=== PATIENT | female | born 1945 | race Caucasian/White ===

== ENCOUNTER 2017-11-02 07:05 | Outpatient (CLI) | payer MEDICARE ==
[~2017-11-02] VITALS: Ht 162.6 cm; Wt 83.5 kg
[~2017-11-02 07:05] MED LIST: succinylcholine 20mg/ml inj IV ONE
[2017-11-02] MEDS ORDERED: albuterol 2.5 MG/3 ML nebule NEB PRN (07:35)
== END 2017-11-02 23:59 | disposition home or self-care (01) ==
LOC: RT 07:05
PROVIDERS: ATTEND Nurse Practitioner Family
DX: J44.9 Chronic obstructive pulmonary disease, unspecified (principal); R06.09 Other forms of dyspnea; Z87.891 Personal history of nicotine dependence
CPT/HCPCS: 94060; 94640; 94727; 94729; 94760; J0330

== ENCOUNTER 2019-08-03 11:54 | Day surgery (SDC) | payer MEDICARE ==
[2019-08-02 12:04] LABS: BASOPHILS # (AUTO) 0.1 X10'3 (0-0.2); EOSINOPHILS # (AUTO) 0.4 X10'3 (0-0.9); EOSINOPHILS % (AUTO) 6.9 % (0-6); HEMOGLOBIN 12.8 g/dl (12.0-16.0); LYMPHOCYTES # (AUTO) 1.6 X10'3 (1.1-4.8); LYMPHOCYTES % (AUTO) 24.3 % (21-51); MEAN CORPUSCULAR HEMOGLOBIN 27.7 PG (27.0-31.0); MEAN CORPUSCULAR HGB CONC 32.8 g/dL (33.0-36.5); MEAN CORPUSCULAR VOLUME 84.3 FL (78-98); MEAN PLATELET VOLUME 7.5 FL (7.4-10.4); MONOCYTES # (AUTO) 0.6 X10'3 (0-0.9); MONOCYTES % (AUTO) 9.4 % (2-12); NEUTROPHILS # (AUTO) 3.7 X10'3 (1.8-7.7); NEUTROPHILS % (AUTO) 58.4 % (42-75); PLATELET COUNT 328 X10'3 (140-440); RED BLOOD COUNT 4.63 X10'6 (4.20-5.60); RED CELL DISTRIBUTION WIDTH 15.7 % (11.5-14.5); WHITE BLOOD COUNT 6.4 X10'3 (4.5-11.0)
[2019-08-02 12:12] LABS: ALBUMIN 3.6 G/DL (3.4-5.0); ANION GAP 8 (8-16); BLOOD UREA NITROGEN 18 MG/DL (7-18); BUN/CREATININE RATIO 23.4 (6.6-38.0); CALCIUM 9.5 MG/DL (8.5-10.1); CHLORIDE 105 MMOL/L (99-107); CREATININE 0.77 MG/DL (0.40-0.90); GLUCOSE 99 MG/DL (70-104); POTASSIUM 4.2 MMOL/L (3.5-5.1); SODIUM 141 MMOL/L (135-145); TOTAL CARBON DIOXIDE 27.6 MMOL/L (24-32); eGFR 74 ML/MIN
[2019-08-02 13:28] LABS: PARTIAL THROMBOPLASTIN TIME 24 SECONDS (22-32)
[2019-08-03] VITALS (8 sets, daily range): BP systolic 103–135; BP diastolic 60–77
[~2019-08-03] VITALS: Ht 162.6 cm; Wt 87.7 kg
[2019-08-03] MEDS ORDERED: LORazepam 0.5 MG tablet PO PRN (12:20)
[2019-08-03] MEDS ORDERED: diphenhydrAMINE 25mg capsule PO PRN (12:20)
[2019-08-03] MEDS ORDERED: normal saline 1,000 ML IV SCH (12:20)
[2019-08-03] MEDS ORDERED: FLUO20CA22 PO (13:25)
[2019-08-03] MEDS ORDERED: ASPI-1265 PO (13:25)
[2019-08-03] MEDS ORDERED: LOVA20TA2 PO (13:25)
[2019-08-03] MEDS ORDERED: LEVO112T5 PO (13:25)
[2019-08-03] MEDS ORDERED: OMEP20CA11 PO (13:25)
[2019-08-03] MEDS ORDERED: ANAS1TAB PO (13:25)
[2019-08-03] MEDS ORDERED: OXYB10TA4 PO (13:25)
[2019-08-03] MEDS ORDERED: CALC-499 PO (13:25)
[2019-08-03] MEDS ORDERED: fentaNYL/PF 50MCG/1 ML 2ML syringe ONE (14:12)
[2019-08-03] MEDS ORDERED: iohexol 350MG/ML 100ml bottle IV ONE (14:13)
[2019-08-03] MEDS ORDERED: nitroGLYCERIN-Tridil 50MG/D5W 250 ML IV ONE (14:13)
[2019-08-03] MEDS ORDERED: iohexol 350 MG/ML 50ML vial IV ONE (14:13)
[2019-08-03] MEDS ORDERED: heparin 1,000unit/ml 10ml vial 10 ML ONE (14:13)
[2019-08-03] MEDS ORDERED: midazolam 2 mg/2 ml injection ONE (14:13)
[2019-08-03] MEDS ORDERED: LIDOcaine 1% (10mg/ml)w/preservative injection 20ml MDV ONE (14:13)
[2019-08-03] MEDS ORDERED: normal saline 1000ml 1,000 ML IV SCH (15:35)
== END 2019-08-03 20:00 | disposition home or self-care (01) ==
LOC: SSTAY O 11:54
PROVIDERS: ATTEND Internal Medicine Cardiovascular Disease
DX: R94.39 Abnormal result of other cardiovascular function study (principal); I25.10 Atherosclerotic heart disease of native coronary artery without angina pectoris; J45.909 Unspecified asthma, uncomplicated; K21.9 Gastro-esophageal reflux disease without esophagitis; M19.90 Unspecified osteoarthritis, unspecified site; E03.9 Hypothyroidism, unspecified; F32.9 Major depressive disorder, single episode, unspecified; Z85.3 Personal history of malignant neoplasm of breast; Z79.01 Long term (current) use of anticoagulants; Z87.891 Personal history of nicotine dependence; Z98.890 Other specified postprocedural states; Z92.21 Personal history of antineoplastic chemotherapy; Z79.899 Other long term (current) drug therapy
CPT/HCPCS: 36415; 80048; 85025; 85610; 85730; 93458; 99152; 99153; C1760; C1769; J1644; J2001; J2250; J3010; J7030; Q0163; Q9967; A6258; J3490

== ENCOUNTER 2022-02-23 05:54 | Day surgery (SDC) | payer MEDICARE, OTHER ==
[2022-02-22 12:20] LABS: BASOPHILS # (AUTO) 0.1 X10'3 (0-0.2); EOSINOPHILS # (AUTO) 0.3 X10'3 (0-0.9); EOSINOPHILS % (AUTO) 4.2 % (0-6); HEMATOCRIT 35.6 % (35.0-45.0); HEMOGLOBIN 11.5 g/dl (12.0-16.0); LYMPHOCYTES # (AUTO) 1.5 X10'3 (1.1-4.8); MEAN CORPUSCULAR HEMOGLOBIN 24.2 PG (27.0-31.0); MEAN CORPUSCULAR HGB CONC 32.3 g/dL (33.0-36.5); MEAN PLATELET VOLUME 7.8 FL (7.4-10.4); MONOCYTES # (AUTO) 0.6 X10'3 (0-0.9); MONOCYTES % (AUTO) 9.9 % (2-12); NEUTROPHILS # (AUTO) 3.6 X10'3 (1.8-7.7); NEUTROPHILS % (AUTO) 59.9 % (42-75); PLATELET COUNT 372 X10'3 (140-440); RED BLOOD COUNT 4.74 X10'6 (4.20-5.60); RED CELL DISTRIBUTION WIDTH 17.9 % (11.5-14.5); WHITE BLOOD COUNT 6.1 X10'3 (4.5-11.0)
[2022-02-22 12:30] LABS: APTT 27 SECONDS (22-32)
[2022-02-22 12:35] LABS: ALBUMIN 3.7 G/DL (3.4-5.0); ANION GAP 7 (8-16); BLOOD UREA NITROGEN 20 MG/DL (7-18); BUN/CREATININE RATIO 24.7 (6.6-38.0); CALCIUM 9.2 MG/DL (8.5-10.1); CHLORIDE 104 MMOL/L (99-107); CREATININE 0.81 MG/DL (0.40-0.90); GLUCOSE 79 MG/DL (70-104); POTASSIUM 4.6 MMOL/L (3.5-5.1); SODIUM 139 MMOL/L (135-145); TOTAL CARBON DIOXIDE 27.7 MMOL/L (24-32); eGFR 69 ML/MIN
[~2022-02-23] VITALS: Ht 162.6 cm; Wt 87.5 kg
[2022-02-23] VITALS (9 sets, daily range): BP systolic 140–178; BP diastolic 69–100
[~2022-02-23 05:54] MED LIST changes: +ANAS1TAB PO; +ASPI-1265 PO; +CALC-499 PO; +FLUO-167 PO; +LEVO112T5 PO; +LOVA20TA2 PO; +OMEP20CA15 PO; +OXYB10TA4 PO; -succinylcholine 20mg/ml inj IV ONE
[2022-02-23] MEDS ORDERED: diphenhydrAMINE 25mg capsule PO PRN (06:10)
[2022-02-23] MEDS ORDERED: normal saline 1,000 ML IV SCH (06:10)
[2022-02-23] MEDS ORDERED: acetylcysteine 200 MG/ml 4ml vial PO PRN (06:15)
[2022-02-23] MEDS ORDERED: LIDOcaine/PRILOcaine 5gm cream TP ONE (06:20)
[2022-02-23] MEDS ORDERED: CARV6.2555 PO (06:26)
[2022-02-23] MEDS ORDERED: ROSU20TA31 PO (06:26)
[2022-02-23] MEDS ORDERED: ALEN70TA37 PO (06:29)
[2022-02-23] MEDS ORDERED: [UNRECOGNIZED DRUG - OTHER] (06:32)
[2022-02-23] MEDS ORDERED: IBUP-2697 PO (06:32)
[2022-02-23] MEDS ORDERED: FLAX1CAP4 PO (06:32)
[2022-02-23] MEDS ORDERED: VITAMIN B (06:32)
--- NOTE | 2022-02-23 07:00 | NUR ---
Spoke with MD to confirm access for procedure. MD states left arm access is available, however, he would like to approach from right wrist. Educated patient on procedure and approach. Clarification made on order for Mucomyst. New order given, no administer per MD.
[2022-02-23] MEDS ORDERED: iohexol 350MG/ML 100ml bottle IV ONE ×2 (07:30→09:33)
[2022-02-23] MEDS ORDERED: midazolam 1 mg/ML 2ml injection ONE (07:30)
[2022-02-23] MEDS ORDERED: fentaNYL/PF 50MCG/1 ML 2ML syringe ONE (07:30)
[2022-02-23] MEDS ORDERED: verapamil 2.5 mg/ml inj IV ONE (07:30)
[2022-02-23] MEDS ORDERED: nitroGLYCERIN-Tridil 50MG/D5W 250 ML IV ONE (07:30)
[2022-02-23] MEDS ORDERED: heparin 1,000unit/ml 10ml vial 10 ML ONE (07:30)
[2022-02-23] MEDS ORDERED: LIDOcaine 1% 30ml preserv. free vial ONE (07:46)
--- NOTE | 2022-02-23 10:23 | NUR ---
Pt appears to be resting comfortably, eyes closed, resp even. VS stable as charted. Pt vasc band in place. no s/s of bleeding. Will continue to monitor.
[2022-02-23] MEDS ORDERED: normal saline 1,000 ML IV ONE (10:25)
== END 2022-02-23 14:00 | disposition home or self-care (01) ==
LOC: SSTAY O 05:54
PROVIDERS: ATTEND Internal Medicine Cardiovascular Disease
DX: R94.39 Abnormal result of other cardiovascular function study (principal); I25.10 Atherosclerotic heart disease of native coronary artery without angina pectoris; I47.1 Supraventricular tachycardia; I10 Essential (primary) hypertension; E78.5 Hyperlipidemia, unspecified; G47.33 Obstructive sleep apnea (adult) (pediatric); E03.9 Hypothyroidism, unspecified; K21.9 Gastro-esophageal reflux disease without esophagitis; F32.A Depression, unspecified; Z91.018 Allergy to other foods; Z79.01 Long term (current) use of anticoagulants; Z98.49 Cataract extraction status, unspecified eye; Z98.890 Other specified postprocedural states; Z90.721 Acquired absence of ovaries, unilateral; Z79.899 Other long term (current) drug therapy; Z82.49 Family history of ischemic heart disease and other diseases of the circulatory system
CPT/HCPCS: 36415; 80048; 85025; 85610; 85730; 93005; 93458; 99152; 99153; A6258; C1769; C1894; J1644; J2250; J3010; J3490; J7030; Q9967; A4620; A5120; A6402

== ENCOUNTER 2022-07-14 06:00 | Day surgery (SDC) | payer MEDICARE, OTHER ==
[2022-07-13 13:38] LABS: ALBUMIN 3.5 G/DL (3.4-5.0); ANION GAP 3 (8-16); BLOOD UREA NITROGEN 17 MG/DL (7-18); CALCIUM 8.9 MG/DL (8.5-10.1); CHLORIDE 105 MMOL/L (99-107); CREATININE 0.85 MG/DL (0.40-0.90); GLUCOSE 92 MG/DL (70-104); POTASSIUM 4.3 MMOL/L (3.5-5.1); SODIUM 137 MMOL/L (135-145); TOTAL CARBON DIOXIDE 28.6 MMOL/L (24-32); eGFR 65 ML/MIN
[2022-07-13 13:39] LABS: BASOPHILS # (AUTO) 0.1 X10'3 (0-0.2); BASOPHILS % (AUTO) 1.2 % (0-1); EOSINOPHILS # (AUTO) 0.3 X10'3 (0-0.9); EOSINOPHILS % (AUTO) 3.9 % (0-6); HEMATOCRIT 33.6 % (35.0-45.0); LYMPHOCYTES # (AUTO) 1.5 X10'3 (1.1-4.8); LYMPHOCYTES % (AUTO) 22.2 % (21-51); MEAN CORPUSCULAR HEMOGLOBIN 25.7 PG (27.0-31.0); MEAN CORPUSCULAR HGB CONC 32.8 g/dL (33.0-36.5); MEAN CORPUSCULAR VOLUME 78.2 FL (78-98); MEAN PLATELET VOLUME 7.9 FL (7.4-10.4); MONOCYTES # (AUTO) 0.7 X10'3 (0-0.9); MONOCYTES % (AUTO) 10.2 % (2-12); NEUTROPHILS # (AUTO) 4.2 X10'3 (1.8-7.7); NEUTROPHILS % (AUTO) 62.5 % (42-75); PLATELET COUNT 307 X10'3 (140-440); RED BLOOD COUNT 4.29 X10'6 (4.20-5.60); RED CELL DISTRIBUTION WIDTH 16.4 % (11.5-14.5); WHITE BLOOD COUNT 6.7 X10'3 (4.5-11.0)
[2022-07-13 13:46] LABS: APTT 26 SECONDS (22-32)
[2022-07-14] VITALS (13 sets, daily range): BP systolic 137–172; BP diastolic 52–69
[~2022-07-14] VITALS: Ht 162.6 cm; Wt 85.8 kg
[~2022-07-14 06:00] MED LIST changes: +ALEN70TA37 PO; -ASPI-1265 PO; +CARV6.2555 PO; +FLAX1CAP4 PO; +IBUP-2697 PO; -LOVA20TA2 PO; +ROSU20TA31 PO; +VITAMIN B; +[UNRECOGNIZED DRUG - OTHER]
[2022-07-14] MEDS ORDERED: normal saline 1000ml 1,000 ML IV SCH ×2 (06:17→10:33)
[2022-07-14] MEDS ORDERED: CARV6.253 PO (06:39)
[2022-07-14] MEDS ORDERED: LETR2.5T7 PO (06:39)
[2022-07-14] MEDS ORDERED: ASPI-611 PO (06:39)
[2022-07-14] MEDS ORDERED: ceFAZolin inj. 2,000 MG in dextrose 5%-water 100 ML IV ONE (07:21)
[2022-07-14] MEDS ORDERED: vancomycin 1,000mg inj ONE (07:25)
[2022-07-14] MEDS ORDERED: midazolam 1 mg/ML 2ml injection ONE ×2 (07:26→08:28)
[2022-07-14] MEDS ORDERED: LIDOCAINE 1%/EPI 1:100,000 inj. 10 ML multi-dose vial ONE ×2 (07:26→08:32)
[2022-07-14] MEDS ORDERED: ceFAZolin 1000mg inj ONE (07:27)
[2022-07-14] MEDS ORDERED: fentaNYL/PF 50MCG/1 ML 2ML syringe ONE (07:27)
[2022-07-14] MEDS ORDERED: hydrALAZINE 20mg/ml inj. IV ONE (09:37)
[2022-07-14] MEDS ORDERED: vancomycin/NS 1 GM in NS 250 ML IV ONE (10:33)
[2022-07-14] MEDS ORDERED: HYDROcodone/acetaminophen 10/325mg tab PO PRN (10:35)
[2022-07-14] MEDS ORDERED: HYDROcodone/acetaminophen 5mg/325mg tablet PO PRN (10:35)
[2022-07-14] MEDS ORDERED: ceFAZolin/D5W- 1GM premix 50 ML IV SCH (16:00)
[2022-07-14] MEDS ORDERED: carvedilol 6.25mg tablet PO SCH (20:00)
[2022-07-15] MEDS ORDERED: VITAMIN D3 PO SCH (08:00)
[2022-07-15] MEDS ORDERED: FLUoxetine 20mg capsule PO SCH (08:00)
[2022-07-15] MEDS ORDERED: oxybutynin 5mg tablet PO SCH (08:00)
[2022-07-15] MEDS ORDERED: CALCIUM CITRATE PO SCH (08:00)
[2022-07-15] MEDS ORDERED: atorvastatin 20mg tablet PO SCH (08:00)
[2022-07-15] MEDS ORDERED: pantoprazole 40mg Tablet.DR PO SCH (08:00)
[2022-07-15] MEDS ORDERED: levoTHYROXINE 112mcg tablet PO SCH (08:00)
[2022-07-15] MEDS ORDERED: aspirin 81mg, enteric-coated 1 TAB TABLET.DR PO SCH (08:00)
[2022-07-20] MEDS ORDERED: Alendronate Sodium 70MG PO SCH (11:20)
== END 2022-07-14 16:00 | disposition home or self-care (01) ==
LOC: SSTAY O 06:00
PROVIDERS: ATTEND Internal Medicine Cardiovascular Disease
DX: I49.5 Sick sinus syndrome (principal); I10 Essential (primary) hypertension; E78.5 Hyperlipidemia, unspecified; Z79.01 Long term (current) use of anticoagulants; Z79.899 Other long term (current) drug therapy; Z98.890 Other specified postprocedural states; E03.9 Hypothyroidism, unspecified; K21.9 Gastro-esophageal reflux disease without esophagitis; F32.9 Major depressive disorder, single episode, unspecified; Z90.721 Acquired absence of ovaries, unilateral; I25.10 Atherosclerotic heart disease of native coronary artery without angina pectoris; Z82.49 Family history of ischemic heart disease and other diseases of the circulatory system; Z88.8 Allergy status to other drugs, medicaments and biological substances; J44.9 Chronic obstructive pulmonary disease, unspecified; G47.30 Sleep apnea, unspecified
CPT/HCPCS: 33208; 36415; 71046; 80048; 85025; 85610; 85730; 93005; 99152; 99153; C1785; C1894; C1898; J0360; J0690; J2250; J3010; J3370; J3490; J7030; J7060; A4565; A4615; A6258; A6449

== ENCOUNTER 2024-02-24 12:49 | Outpatient (CLI) | payer MEDICARE, OTHER ==
[~2024-02-24 12:49] MED LIST changes: -ANAS1TAB PO; +ASPI-611 PO; +CARV6.253 PO; -CARV6.2555 PO; -IBUP-2697 PO; +LETR2.5T7 PO; -ROSU20TA31 PO; +ROSU20TA73 PO
[2024-02-24 13:30] LABS: BASOPHILS # (AUTO) 0.1 X10'3 (0-0.2); EOSINOPHILS # (AUTO) 0.4 X10'3 (0-0.9); EOSINOPHILS % (AUTO) 4.9 % (0-6); HEMATOCRIT 31.8 % (35.0-45.0); HEMOGLOBIN 10.2 g/dl (12.0-16.0); LYMPHOCYTES # (AUTO) 1.6 X10'3 (1.1-4.8); LYMPHOCYTES % (AUTO) 19.1 % (21-51); MEAN CORPUSCULAR HEMOGLOBIN 24.9 PG (27.0-31.0); MEAN CORPUSCULAR HGB CONC 32.2 g/dL (33.0-36.5); MEAN CORPUSCULAR VOLUME 77.5 FL (78-98); MEAN PLATELET VOLUME 7.7 FL (7.4-10.4); MONOCYTES # (AUTO) 0.8 X10'3 (0-0.9); MONOCYTES % (AUTO) 8.8 % (2-12); NEUTROPHILS # (AUTO) 5.6 X10'3 (1.8-7.7); NEUTROPHILS % (AUTO) 66.2 % (42-75); PLATELET COUNT 308 X10'3 (140-440); RED BLOOD COUNT 4.11 X10'6 (4.20-5.60); RED CELL DISTRIBUTION WIDTH 18.5 % (11.5-14.5); WHITE BLOOD COUNT 8.5 X10'3 (4.5-11.0)
[2024-02-24 13:35] LABS: ALBUMIN 3.5 G/DL (3.4-5.0); ANION GAP 7 (8-16); BLOOD UREA NITROGEN 23 MG/DL (7-18); CALCIUM 8.5 MG/DL (8.5-10.1); CHLORIDE 105 MMOL/L (99-107); CREATININE 0.96 MG/DL (0.40-0.90); POTASSIUM 4.3 MMOL/L (3.5-5.1); SODIUM 140 MMOL/L (135-145); TOTAL CARBON DIOXIDE 28.3 MMOL/L (24-32); eGFR 57 ML/MIN
[2024-02-24 13:37] LABS: GLUCOSE 79 MG/DL (70-104)
[2024-02-24 13:39] LABS: APTT 26 SECONDS (22-32); PROTHROMBIN TIME 10.9 SECONDS (9.0-12.0)
== END 2024-02-24 23:59 | disposition home or self-care (01) ==
LOC: LAB 12:49 → EDSTATUS 02-27 08:00
PROVIDERS: ATTEND Internal Medicine Cardiovascular Disease
DX: Z01.818 Encounter for other preprocedural examination (principal); R94.39 Abnormal result of other cardiovascular function study; I25.10 Atherosclerotic heart disease of native coronary artery without angina pectoris
CPT/HCPCS: 36415; 80048; 85025; 85610; 85730; J7030

== ENCOUNTER 2024-03-28 06:54 | Day surgery (SDC) | payer MEDICARE, OTHER ==
[2024-03-27 10:07] LABS: BASOPHILS # (AUTO) 0.1 X10'3 (0-0.2); BASOPHILS % (AUTO) 1.2 % (0-1); EOSINOPHILS # (AUTO) 0.6 X10'3 (0-0.9); EOSINOPHILS % (AUTO) 8.2 % (0-6); HEMATOCRIT 31.8 % (35.0-45.0); HEMOGLOBIN 10.2 g/dl (12.0-16.0); LYMPHOCYTES # (AUTO) 1.3 X10'3 (1.1-4.8); LYMPHOCYTES % (AUTO) 19.8 % (21-51); MEAN CORPUSCULAR HEMOGLOBIN 25.1 PG (27.0-31.0); MEAN CORPUSCULAR HGB CONC 32.3 g/dL (33.0-36.5); MEAN CORPUSCULAR VOLUME 77.9 FL (78-98); MEAN PLATELET VOLUME 7.3 FL (7.4-10.4); MONOCYTES # (AUTO) 0.6 X10'3 (0-0.9); MONOCYTES % (AUTO) 8.3 % (2-12); NEUTROPHILS # (AUTO) 4.3 X10'3 (1.8-7.7); NEUTROPHILS % (AUTO) 62.5 % (42-75); PLATELET COUNT 321 X10'3 (140-440); RED BLOOD COUNT 4.08 X10'6 (4.20-5.60); RED CELL DISTRIBUTION WIDTH 18.8 % (11.5-14.5); WHITE BLOOD COUNT 6.8 X10'3 (4.5-11.0)
[2024-03-27 10:16] LABS: APTT 26 SECONDS (22-32); PROTHROMBIN TIME 10.7 SECONDS (9.0-12.0)
[2024-03-27 10:31] LABS: ALBUMIN 3.4 G/DL (3.4-5.0); ANION GAP 7 (8-16); BLOOD UREA NITROGEN 18 MG/DL (7-18); BUN/CREATININE RATIO 19.4 (10.0-20.0); CALCIUM 8.9 MG/DL (8.5-10.1); CHLORIDE 108 MMOL/L (99-107); CREATININE 0.93 MG/DL (0.40-0.90); GLUCOSE 108 MG/DL (70-104); POTASSIUM 4.4 MMOL/L (3.5-5.1); SODIUM 140 MMOL/L (135-145); TOTAL CARBON DIOXIDE 24.8 MMOL/L (24-32); eGFR 59 ML/MIN
[2024-03-27 10:37] LABS: ANISOCYTOSIS 2+; ELLIPTOCYTES FEW; MICROCYTOSIS 1+; PLATELET ESTIMATE NORMAL
[2024-03-28] VITALS (10 sets, daily range): BP systolic 112–140; BP diastolic 58–77; PULSE 60–72; RESP 14–19; TEMP 97.6; O2SAT 92–98
[~2024-03-28] VITALS: Ht 160 cm; Wt 88.5 kg
[2024-03-28] MEDS ORDERED: diphenhydrAMINE 25mg capsule PO PRN (07:10)
[2024-03-28] MEDS ORDERED: LORazepam 0.5 MG tablet PO PRN (07:10)
[2024-03-28] MEDS ORDERED: LEVO125T8 PO (07:25)
[2024-03-28] MEDS: normal saline 1,000 ML IV SCH (08:04)
[2024-03-28] MEDS ORDERED: fentaNYL/PF 50MCG/1 ML 2ML syringe ONE (08:29)
[2024-03-28] MEDS ORDERED: heparin 1,000unit/ml 10ml vial 10 ML ONE (08:29)
[2024-03-28] MEDS ORDERED: midazolam 1 mg/ML 2ml injection ONE (08:29)
[2024-03-28] MEDS ORDERED: verapamil 2.5 mg/ml inj IV ONE (08:29)
[2024-03-28] MEDS ORDERED: iohexol 350MG/ML 100ml bottle IV ONE ×2 (08:29→09:27)
[2024-03-28] MEDS ORDERED: LIDOcaine 1% (10mg/ml) 2ml vial ONE (08:29)
[2024-03-28] MEDS ORDERED: iohexol 350 MG/ML 50ML vial IV ONE ×2 (08:30→09:26)
[2024-03-28] MEDS ORDERED: nitroGLYCERIN 500mcg/5mL D5W 5 ML IV ONE (08:31)
[2024-03-28] MEDS ORDERED: diphenhydrAMINE 50 mg/ml inj ONE (09:01)
[2024-03-28] MEDS ORDERED: LIDOcaine 1% 30ml preserv. free vial ONE (09:09)
[2024-03-28] MEDS ORDERED: normal saline 1000ml 1,000 ML IV ONE (10:10)
[2024-03-28 11:35] LABS: ISTAT HGB ART 10.5 g/dl (12.0-16.0); ISTAT Hct ART 31 %PCV (35-45); ISTAT O2 SATURATION ARTERIAL 97 % (95-98); ISTAT SOURCE ART
[2024-03-28 14:37] LABS: ISTAT HGB MIX 10.5 g/dl (12.0-16.0); ISTAT Hct MIX 31 %PCV (35-45); ISTAT O2 SATURATION MIX VENOUS 69 % (60-80); ISTAT SOURCE VEN
== END 2024-03-28 14:10 | disposition home or self-care (01) ==
LOC: SSTAY O 06:54
PROVIDERS: ATTEND Internal Medicine Cardiovascular Disease
DX: R94.39 Abnormal result of other cardiovascular function study (principal); I25.10 Atherosclerotic heart disease of native coronary artery without angina pectoris; I10 Essential (primary) hypertension; E03.9 Hypothyroidism, unspecified; E78.5 Hyperlipidemia, unspecified; K21.9 Gastro-esophageal reflux disease without esophagitis; J44.9 Chronic obstructive pulmonary disease, unspecified; G47.33 Obstructive sleep apnea (adult) (pediatric); F32.A Depression, unspecified; Z90.721 Acquired absence of ovaries, unilateral; Z98.49 Cataract extraction status, unspecified eye; Z98.890 Other specified postprocedural states; Z82.49 Family history of ischemic heart disease and other diseases of the circulatory system
CPT/HCPCS: 76937; 80048; 82803; 85014; 85025; 85610; 85730; 93005; 93460; 93567; 99152; 99153; A6258; A6402; C1725; C1751; C1894; J1200; J1644; J2001; J2250; J3010; J3490; J7030; Q9967; Z7610; 85008